=== PATIENT | female | born 1950 | race Caucasian/White ===

== ENCOUNTER 2016-08-31 09:30 | Day surgery (SDC) | payer MEDICARE, OTHER ==
--- NOTE | ~2016-08-31 | OP ---
Record Of Operation [facility] [address] [place]. [address] NAME: DIANN RAZO : [birth year] STATUS : [facility]#: [id number] AGE: 66 ADM/REG DATE : 08/31/16 MR#: [id number] REPORT SERV DATE: 09/02/16 DICTATED BY: KAYLEIGH DANIEL DATE: 09/02/16 REPORT STATUS : Draft TRANSCRIBED BY: MODL DATE: 09/02/16 DATE OF PROCEDURE: 08/31/2016 PREOPERATIVE DIAGNOSES: 1. History of right innominate stent with question of in-stent restenosis by recent ultrasound. 2. High-grade left common carotid artery stenosis. POSTOPERATIVE DIAGNOSES: 1. No significant restenosis of the innominate artery stent. 2. High-grade greater than 80% left common carotid artery origin stenosis. PROCEDURE: 1. Ultrasound-guided percutaneous access, right common femoral artery. 2. Arch aortogram. 3. Selective catheterization of the innominate artery and the left common carotid artery with selective arteriogram of each. SURGEON: Kayleigh Daniel M.D. ANESTHESIA: Local with MAC. ESTIMATED BLOOD LOSS: 25 mL. CONTRAST: 99 mL. IV FLUIDS: 1100 mL. COMPLICATIONS: None. INDICATION: Ms Razo is a pleasant, 66-year-old female smoker with a long history of peripheral arterial disease. She has a prior history of innominate artery stent placement in the past. Recent surveillance ultrasound showed abnormally low blood pressure in both arms. There is question of in-stent restenosis of the innominate stent. She also has a history of left carotid subclavian bypass with a normal-appearing bypass but waveform suggestive of proximal common carotid artery stenosis. She is recommended for diagnostic arteriogram. DETAILS OF PROCEDURE: After informed consent was obtained, the patient was brought to the endovascular suite and placed in supine position. After administration of IV sedation, she was prepped and draped in usual sterile fashion. A time-out was performed. I commenced the procedure with ultrasound-guided percutaneous access of the right common femoral artery. This was done after anesthetizing the right groin with local anesthetic. A permanent image of the artery documenting patency was saved and stored in the patient's chart. I accessed with a micropuncture needle, passed a micropuncture wire, confirmed intra-arterial under fluoroscopy. I then placed a micropuncture sheath. I then upsized to a 5-English sheath Record Of Operation [facility] [address] [place]. [address] NAME: DIANN RAZO OCTOBER : [birth year] STATUS : [facility]#: [id number] AGE: 66 ADM/REG DATE : 08/31/16 MR#: [id number] REPORT SERV DATE: 09/02/16 DICTATED BY: KAYLEIGH DANIEL DATE: 09/02/16 REPORT STATUS : Draft TRANSCRIBED BY: HITESH DATE: 09/02/16 over a Bentson wire. The Bentson wire and Ogden flush catheter were advanced to the aortic arch. 5000 units of IV heparin were administered. I then performed arch aortogram. This showed a patent nonaneurysmal aortic arch. There was a normal arch vessel configuration. It was a type 3 arch. There was a stent in place in the innominate, which was visible. There was flow through the stent. After that, I used a JB2 and the Glidewire to engage the innominate artery. Selective arteriogram of the innominate artery was performed, which showed a widely patent stent in the innominate. The common carotid artery was patent with no high-grade stenosis. There was stenosis at the origin the right subclavian artery, which probably explains the abnormally low blood pressure on the right side. After that, I engaged the left common carotid artery again with the JB2. Selective arteriogram of the common carotid artery was performed, which shows a high-grade focal stenosis at the origin of the common carotid artery greater than 80%. The remainder of the common carotid artery was widely patent including the bifurcation. There was a left carotid subclavian bypass, which was widely patent with no stenosis, good flow distally. After that, wires and catheters were removed. Right femoral artery arteriogram shows a puncture site in the mid common femoral artery. As a result, ProGlide closure device was deployed for hemostasis. This was uneventful. The patient tolerated the procedure well without complications. I was present and participated for this entire case as dictated. She will require stent placement in the origin of left common carotid artery as it is surgically inaccessible except via sternotomy. GEORG[place]/HITESH Kayleigh Daniel M.D. / [id number] CC: Kayleigh Daniel M.D.
[~2016-08-31 09:30] MED LIST: CLIMARA 0.1 MG0.1 MG PO; COREG12 PO; ESTRADIOL2 MG PO; HALF81 PO; L20 PO; LIPITOR10 PO; NORCO1 TA1 PO; NORCO1 TA2 PO; PLAVIX PO; VITAMIN D1000 UNI1 PO; ZANTAC150 MG PO; [UNRECOGNIZED DRUG - REMARK]
[2016-08-31 10:33] LABS: HEMOGLOBIN 8.7 g/dL (12.0-16.0)
[2016-08-31 10:44] LABS: CHLORIDE, SERUM 106 MMOL/L (96-112); CO2 (CARBON DIOXIDE) 24 MMOL/L (24-34); GFR AFRICAN AMERICAN 45 ML/MIN (>=60); GFR NON AFRICAN AMERICAN 39 ML/MIN (>=60); GLUCOSE, SERUM 92 MG/DL (60-99); SODIUM, SERUM 139 MMOL/L (135-148)
[2016-08-31 10:46] LABS: BUN (BLOOD UREA NITROGEN) 10 MG/DL (6-23); POTASSIUM, SERUM 5.2 MMOL/L (3.5-5.3)
[2016-11-08] MEDS ORDERED: PLAVIX PO (20:52)
[2016-11-08] MEDS ORDERED: COREG12 PO (20:52)
[2016-11-08] MEDS ORDERED: LIPITOR10 PO (20:53)
[2016-11-08] MEDS ORDERED: HALF81 PO (20:53)
[2016-11-08] MEDS ORDERED: ZANTAC150 MG PO (20:53)
[2016-11-08] MEDS ORDERED: ESTRADIOL2 MG PO (20:54)
[2016-11-08] MEDS ORDERED: L20 PO (20:54)
== END 2016-09-01 12:35 | disposition home or self-care (01) ==
LOC: SDC 09:30 → SSU1 17:29
PROVIDERS: Surgery
DX: I65.23 Occlusion and stenosis of bilateral carotid arteries (principal); T82.856A Stenosis of peripheral vascular stent, initial encounter; I10 Essential (primary) hypertension; E78.5 Hyperlipidemia, unspecified; J32.9 Chronic sinusitis, unspecified; I70.208 Unspecified atherosclerosis of native arteries of extremities, other extremity; I70.8 Atherosclerosis of other arteries; F17.200 Nicotine dependence, unspecified, uncomplicated; M19.90 Unspecified osteoarthritis, unspecified site; K21.9 Gastro-esophageal reflux disease without esophagitis; Z90.710 Acquired absence of both cervix and uterus; Z95.0 Presence of cardiac pacemaker; Z88.8 Allergy status to other drugs, medicaments and biological substances
CPT/HCPCS: 36222 ×2; 76937; 80048; 85014; 85018; 93005 ×2; A9270 ×9; C1760; C1769 ×3; C1887; C1894 ×2; J2270; J2370; J3010; J2250; Q9966

== ENCOUNTER 2016-09-09 08:21 | Inpatient (IN) | payer MEDICARE, OTHER ==
[2016-09-07 16:19] LABS: HEMATOCRIT 31.1 % (36.0-48.0)
[2016-09-07 16:27] LABS: BUN (BLOOD UREA NITROGEN) 12 MG/DL (6-23); CALCIUM, SERUM 9.5 MG/DL (8.5-10.4); CHLORIDE, SERUM 107 MMOL/L (96-112); CO2 (CARBON DIOXIDE) 23 MMOL/L (24-34); GFR AFRICAN AMERICAN 49 ML/MIN (>=60); GFR NON AFRICAN AMERICAN 42 ML/MIN (>=60); GLUCOSE, SERUM 87 MG/DL (60-99); POTASSIUM, SERUM 4.3 MMOL/L (3.5-5.3); SODIUM, SERUM 141 MMOL/L (135-148)
--- NOTE | ~2016-09-09 | OP ---
Record Of Operation [facility] [address] [place]. [address] NAME: DIANN RAZO : [birth year] STATUS : DIS IN PAT#: [id number] AGE: 66 ADM/REG DATE : 09/09/16 MR#: [id number] REPORT SERV DATE: 09/15/16 DICTATED BY: KAYLEIGH DANIEL DATE: 09/15/16 REPORT STATUS : Draft TRANSCRIBED BY: MODEmily DATE: 09/15/16 DATE OF PROCEDURE: 09/09/2016 PREOPERATIVE DIAGNOSES: High-grade 90% stenosis of the origin of the left common carotid artery. POSTOPERATIVE DIAGNOSIS: High-grade 90% stenosis of the origin of the left common carotid artery. PROCEDURES: 1. Ultrasound-guided percutaneous access, left brachial artery. 2. Left carotid arteriogram. 3. Primary stent placed in the left common carotid artery origin with distal embolic protection (7 mm x 19 mm Express SD stent). 4. Exploration of left brachial artery with primary repair. SURGEON: Kayleigh Daniel M.D. ANESTHESIA: Local with MAC. ESTIMATED BLOOD LOSS: 50 mL. CONTRAST: 45 mL. INDICATIONS: Ms. Razo is a pleasant 66-year-old female, long-time smoker, with a history of extracranial carotid artery disease. She has a prior history of innominate artery stent placement as well as left carotid subclavian bypass. On recent arteriogram, she was noted to have a high-grade 90% stenosis at the origin of the left common carotid artery. Due to her arch configuration, this was not able to be treated from a femoral approach. It is in the low intrathoracic position obviously and not amenable to surgical reconstruction. Thus she was recommended for a brachial access through her carotid subclavian bypass to stent her common carotid artery origin. DETAILS OF PROCEDURE: After informed consent was obtained, the patient was brought to the endovascular suite and placed in a supine position. After administration of IV sedation, she was prepped and draped in the usual sterile fashion. A time-out was performed. I commenced the procedure with ultrasound-guided percutaneous access to the left brachial artery. This was done after anesthetizing the skin. A permanent image of the artery documenting patency was saved and stored in the patient's chart. I accessed with a micropuncture needle, passed a micropuncture wire, confirmed intra-arterial under ultrasound. I then placed a micropuncture sheath. I performed contrast injection to ensure I was in the brachial artery. I then placed a Bentson wire followed by a 5-Syriac sheath. I used the Bentson wire and a julius 2 to navigate through the carotid subclavian bypass. Arteriogram was performed at this level which shows a widely patent carotid subclavian bypass with both anastomoses widely patent. I carefully advanced the catheter into the common carotid artery. The origin as mentioned previously is highly stenosed approximately Record Of Operation [facility] [address] [facility] [place]. [address] NAME: DIANN RAZO OCTOBER : [birth year] STATUS : DIS IN PAT#: [id number] AGE: 66 ADM/REG DATE : 09/09/16 MR#: [id number] REPORT SERV DATE: 09/15/16 DICTATED BY: KAYLEIGH DANIEL DATE: 09/15/16 REPORT STATUS : Draft TRANSCRIBED BY: HITESH DATE: 09/15/16 90%. There is no thrombus. There is moderate calcification. The remainder of the common carotid artery is widely patent with no stenosis as is the bifurcation. After that, I exchanged the 5-Syriac sheath for a 7 x 45 sheath. We systemically heparinized. I advanced the sheath up into the carotid subclavian bypass. I then used a julius 2 to direct a wire and catheter cephalad just proximal to the carotid bifurcation. I then deployed a 7 mm Spider filter into the distal common carotid artery. After that, I directed a V18 wire proximally down through the common carotid artery origin. Once the wire was in place, I primarily stented the common carotid artery origin with a 7 mm x 19 mm Express SD stent. Stent was deployed without difficulty with distal embolic protection in place the whole time. Repeat contrast injection shows the stent widely patent with perfect positioning. No residual stenosis. After that, I retrieved the filter. There was no embolic debris within the filter. There is a good flow distally in the carotid artery. Wires and catheters were removed. I attempted a ProGlide closure device of the brachial artery which was successful for hemostasis. However, there was not adequate flow distally by Doppler flow. As a result, I anesthetized the skin and antecubital fossa and exposed the brachial artery surgically. It was controlled proximally and distally with vessel loops. I exposed the closure site which was hemostatic. I cut the suture from the ProGlide and visualized the lumen of the vessel which is intact. I then primarily closed the arteriotomy with interrupted 6-0 Prolene. Prior to restoring flow, I flushed. I then restored the flow distally. The artery was pulsatile. There was a palpable pulse at the radial artery which is a significant improvement. The hand looks normally perfused. After that, we ensured hemostasis. The brachial incision was closed in layers with 3-0 Vicryl for the deep layer with running 4-0 Monocryl in a subcuticular fashion. The patient tolerated the procedure well with no complications. I was present for this entire case as dictated. She remained neurologically intact and cooperative throughout the procedure. GEORGIA/HITESH Kayleigh Daniel M.D. / [id number] CC: Kayleigh Daniel M.D.
[2016-09-10 04:20] LABS: BUN (BLOOD UREA NITROGEN) 15 MG/DL (6-23); CALCIUM, SERUM 8.7 MG/DL (8.5-10.4); CHLORIDE, SERUM 108 MMOL/L (96-112); CO2 (CARBON DIOXIDE) 25 MMOL/L (24-34); CREATININE 1.31 MG/DL (0.55-1.02); GFR AFRICAN AMERICAN 49 ML/MIN (>=60); GFR NON AFRICAN AMERICAN 42 ML/MIN (>=60); SODIUM, SERUM 142 MMOL/L (135-148)
[2016-09-10 04:22] LABS: GLUCOSE, SERUM 116 MG/DL (60-99)
[2016-09-10 05:25] LABS: BASOPHILS 0.5 %; BASOPHILS ABSOLUTE 0.04 10/3/uL (0.0-0.16); EOSINOPHILS 6.6 %; HEMOGLOBIN 7.3 g/dL (12.0-16.0); IMMATURE GRANULOCYTES 0.4 %; IMMATURE GRANULOCYTES ABSOLUTE 0.03 10/3/uL (0.0-0.11); LYMPHOCYTES 21.7 %; LYMPHOCYTES ABSOLUTE 1.63 10/3/uL (0.67-4.30); MEAN PLATELET VOLUME 9.2 fL (9.2-13.0); MONOCYTES 13.3 %; NEUTROPHILS 57.5 %; NEUTROPHILS ABSOLUTE 4.32 10/3/uL (2.02-8.40); PLATELET COUNT 334 10/3/uL (150-400); RBC DISTRIBUTION WIDTH 17.8 % (12.0-16.0); WHITE BLOOD CELLS 7.5 10/3/uL (4.5-10.5)
[2016-09-10 05:33] LABS: HEMATOCRIT 26.1 % (36.0-48.0); MANUAL DIFF NO %; MEAN CORPUSCULAR HEMOGLOB 21.1 pg (26.0-34.0); MEAN CORPUSCULAR VOLUME 75.4 fL (80-100); RED CELL COUNT 3.46 10/6/uL (4.0-5.6)
[2016-09-10] MEDS ORDERED: ASAB PO (16:45)
[2016-09-10] MEDS ORDERED: PCET PO (16:46)
[2016-11-08] MEDS ORDERED: COREG12 PO (20:52)
[2016-11-08] MEDS ORDERED: PLAVIX PO (20:52)
[2016-11-08] MEDS ORDERED: LIPITOR10 PO (20:53)
[2016-11-08] MEDS ORDERED: ZANTAC150 MG PO (20:53)
[2016-11-08] MEDS ORDERED: HALF81 PO (20:53)
[2016-11-08] MEDS ORDERED: ESTRADIOL2 MG PO (20:54)
[2016-11-08] MEDS ORDERED: L20 PO (20:54)
== END 2016-09-10 17:02 | disposition home or self-care (01) | DRG 35 ==
LOC: SDC 08:21 → SDC/OF 12:22 → CVICU 16:10
PROVIDERS: Surgery
PROC: 037J3DZ Dilation of Left Common Carotid Artery with Intraluminal Device, Percutaneous Approach (ICD-10-PCS; principal; 2016-09-09 10:15)
PROC: 03Q80ZZ Repair Left Brachial Artery, Open Approach (ICD-10-PCS; 2016-09-09 10:15)
DX: I65.22 Occlusion and stenosis of left carotid artery (principal); N17.9 Acute kidney failure, unspecified; E78.5 Hyperlipidemia, unspecified; I12.9 Hypertensive chronic kidney disease with stage 1 through stage 4 chronic kidney disease, or unspecified chronic kidney disease; Z88.8 Allergy status to other drugs, medicaments and biological substances; Z88.6 Allergy status to analgesic agent; Z79.899 Other long term (current) drug therapy; Z79.02 Long term (current) use of antithrombotics/antiplatelets; Z95.0 Presence of cardiac pacemaker; F17.210 Nicotine dependence, cigarettes, uncomplicated
CPT/HCPCS: 35206; 37215; 76937; 80048; 85014; 85018; 85025; A9270-GY; C1760; C1769; C1876; C1884; C1894; J0690; J1170; J2250; J2370; J3010; Q9966

== ENCOUNTER 2017-02-09 15:35 | Observation (INO) | payer MEDICARE, OTHER ==
[~2017-02-09] VITALS: Ht 157.5 cm; Wt 82.5 kg
--- NOTE | ~2017-02-09 | DS ---
Discharge Summary [facility] [address] [place]. [address] NAME: DIANN GARRETT OCTOBER : [birth year] STATUS : DIS Melanie PAT#: [id number] AGE: 66 ADM/REG DATE : 02/09/17 MR#: [id number] REPORT SERV DATE: 02/11/17 DICTATED BY: TRINA MARQUIS DATE: 02/10/17 REPORT STATUS : Draft TRANSCRIBED BY: MODL DATE: 02/10/17 ADMISSION DATE: 02/09/2017 DISCHARGE DATE: 02/10/2017 DISCHARGE DIAGNOSES: 1. Acute kidney injury on chronic kidney disease, improved with 2 L of normal saline. 2. Peripheral vascular disease. The patient has appointment with Dr. Daniel and he has been ordering ultrasound every three months. 3. Tobacco abuse. The patient is willing to take the nicotine patch to stop smoking. 4. Hypotension, recently her Coreg was double dosed by Dr. Wahl when she presented to his office with hypertension. We are going to resume her Coreg with the lower dose and recommend checking the ambulatory blood pressure at home. 5. Left hip pain and x-rays negative for acute abnormalities. HORTICULTURAL AGENT: Neurologist. HISTORY OF PRESENT ILLNESS: This is a 66-year-old female patient who has peripheral vascular disease, came to the hospital complaining of left-sided weakness and left-sided hip pain. Please see dictated H and P. HOSPITAL COURSE: The patient was admitted to hospital with concern for TIA/CVA. Had an MRI done, and did not show any acute stroke. The patient regained strength after the hydration, and she is able to ambulate the hallway without any problem. According to the history, more available from the son, the patient's Coreg was double dosed a week or two ago because her blood pressure was very high when she presented to Dr. Wahl's office. Weakness developed yesterday. When she came to the hospital, her blood pressure was low and also she was found to be dehydrated. She had 2 L of normal saline and she is better, and she regained her strength back. An MRI was negative for acute stroke, and the patient is followed by Dr. Daniel on a regular basis for peripheral vascular disease. Her left hip was examined with x-ray, was tender on the lateral side, more likely related to bursitis. We can continue the NSAID topical. She is willing to discontinue smoking and we will provide nicotine patch and explain. Education is given in a lengthy manner. Overall, had improvement. The patient will be discharged to home with followup with primary care physician and also Coreg will be resumed tomorrow with a lower dose. DISCHARGE MEDICATIONS: Again Coreg is decreased to 12.5 mg once a day and rest of her medications including aspirin 81 mg once a day, Lipitor 10 mg once at nighttime, Plavix 75 mg once a day, Zantac 150 mg twice a day, estradiol 2 mg once a day and is continued. Diclofenac topical is given from here for the left hip. Outpatient orthopedic evaluation is recommended. Discharge Summary [facility] [id number] [place]. [address] NAME: DIANN GARRETT OCTOBER : [birth year] STATUS : DIS Melanie PAT#: [id number] AGE: 66 ADM/REG DATE : 02/09/17 MR#: [id number] REPORT SERV DATE: 02/11/17 DICTATED BY: TRINA MARQUIS DATE: 02/10/17 REPORT STATUS : Draft TRANSCRIBED BY: HITESH DATE: 02/10/17 DISPOSITION: The patient is discharged to home and she did not want to have home physical therapy set up on discharge, so the patient will be discharged home without physical therapy service. EKL/HITESH Trina Marquis M.D. / [id number] CC: Trina Marquis M.D.
--- NOTE | ~2017-02-09 | HP ---
History And Physical [facility] [address] [place]. [address] NAME: DIANN GARRETT OCTOBER : [birth year] STATUS : ADM Melanie PAT#: [id number] AGE: 66 ADM/REG DATE : 02/09/17 MR#: [id number] REPORT SERV DATE: 02/09/17 DICTATED BY: IRMA SANTACRUZ DATE: 02/09/17 REPORT STATUS : Draft TRANSCRIBED BY: MODL DATE: 02/09/17 DATE OF ADMISSION: 02/09/2017 CHIEF COMPLAINT: Left leg weakness. HISTORY OF PRESENT ILLNESS: The patient is a 66-year-old white female who came in complaining of left leg weakness. Her son noted she could not stand. She fell out of her chair. She fell twice. She is also currently complaining of left hip pain. The patient has a history of bilateral carotid stents, last one was in 05/2016. She does continue to smoke 1-1/2 packs per day. Currently, the patient also has a history of vertebral basilar artery syndrome. She does have a pacemaker in, but per patient, it is MRI compatible. The patient has also had nausea and vomiting for the last several days also and has had difficulty keeping things down. PAST MEDICAL HISTORY: Significant for normal cardiac cath done in 10/2016, pacemaker, bilateral carotid stents, hypertension, increased cholesterol, hysterectomy, and cholecystectomy. She has vertebral basilar syndrome. ALLERGIES: SHE HAS NO KNOWN DRUG ALLERGIES. SOCIAL HISTORY: Smokes 1-1/2 packs per day. Does not drink alcohol. Retired motel worker. Lives with her son. She is a full code. FAMILY HISTORY: Dad of cirrhosis of liver. Mom of natural causes. MEDICATIONS: The patient was currently on vitamin C 500 mg daily, aspirin 81 mg daily, Lipitor 10 mg at bedtime, Coreg 12.5 mg b.i.d., Plavix 75 mg daily, estradiol 2 mg daily, and Zantac 150 mg b.i.d. ALLERGIES: SHE HAS NO KNOWN DRUG ALLERGIES. REVIEW OF SYSTEMS: CONSTITUTIONAL: She has had no fever, sweats, or rigors. EYES: No blurred or double vision, vision loss, or glaucoma. HEENT: No headache, hearing loss, or tinnitus. CARDIOVASCULAR: Denies chest pain, palpitations, or syncope. RESPIRATORY: No cough, wheezing, or pleuritic pain. GASTROINTESTINAL: She has had nausea and vomiting. No hematemesis. No abdominal pain. She has had some diarrhea. No melena or hematochezia. MUSCULOSKELETAL: She does have arthralgia, arthritis. Currently has left hip pain after her falls. INTEGUMENT: No rash or suspicious skin lesions. NEUROLOGIC: No memory loss. There have been some gait disturbance and weakness. There has been TIA like symptoms. HEMATOLOGIC: She does have a history of anemia. No iron deficiency or B12 deficiency. PSYCHIATRIC: No depression, bipolar anxiety. History And Physical [address] [address] NAME: DIANN GARRETT OCTOBER : [birth year] STATUS : ADM Melanie PAT#: [id number] AGE: 66 ADM/REG DATE : 02/09/17 MR#: [id number] REPORT SERV DATE: 02/09/17 DICTATED BY: IRMA SANTACRUZ DATE: 02/09/17 REPORT STATUS : Draft TRANSCRIBED BY: HITESH DATE: 02/09/17 : No dysuria, hematuria, or nephrolithiasis. ENDOCRINE: No history of diabetes. There is history of increased cholesterol. PHYSICAL EXAMINATION: VITAL SIGNS: Blood pressure is 98/53, temp 98.2, pulse 88, respiration 18, and O2 saturation 92% on room air. CONSTITUTIONAL: Alert, appropriate. PSYCHIATRIC: Oriented x3. Memory intact. Affect appropriate. HEENT: Atraumatic, normocephalic. Oral palate without lesion. EYES: Pupils reactive, anicteric. Conjunctivae clear. NECK: No adenopathy. Supple. No thyromegaly or masses. RESPIRATORY: Scattered rhonchi. No chest wall tenderness. CARDIOVASCULAR: Regular rate and rhythm. No murmurs. She does have bilateral carotid bruits. ABDOMEN: Soft, nontender. No masses. SKIN: No rash. No specific lesions. NEUROLOGICAL: She has some left leg weakness, otherwise, cranial nerves 2 through 12 intact. LYMPHATIC: No adenopathy in the neck, axilla, or femoral region. MUSCULOSKELETAL: Range of motion is intact in upper and lower extremities. DATA: Head CT note there are no acute changes. EKG is normal. LABORATORY WORK: White blood cell count 13.9, hemoglobin 8.5, and platelet 283. Sodium 131, potassium 3.2, BUN 15, creatinine 1.59, and glucose 115. IMPRESSION/PLAN: 1. Transient ischemic attack. Rule out cerebrovascular accident. We will order MRI in a.m. as the patient has an MRI compatible pacemaker. 2. Left hip pain. We will obtain left hip x-ray. 3. Nausea, vomiting, and diarrhea. We will give IV fluids as blood pressure is on the low side. 4. Hypokalemia, replete. 5. (?)-stage 3 chronic kidney disease. Recheck BMP in a.m. NGM/MODL Irma Santacruz MD / [id number] CC: Karmen Blue MD
[~2017-02-09 15:35] MED LIST changes: +ASAB PO; +PCET PO
[2017-02-09 17:31] LABS: BASOPHILS 0.1 %; BASOPHILS ABSOLUTE 0.01 10/3/uL (0.0-0.16); EOSINOPHILS 0.1 %; EOSINOPHILS ABSOLUTE 0.01 10/3/uL (0.0-0.53); HEMATOCRIT 29.2 % (36.0-48.0); HEMOGLOBIN 8.5 g/dL (12.0-16.0); IMMATURE GRANULOCYTES 0.4 %; IMMATURE GRANULOCYTES ABSOLUTE 0.05 10/3/uL (0.0-0.11); LYMPHOCYTES 8.3 %; LYMPHOCYTES ABSOLUTE 1.16 10/3/uL (0.67-4.30); MEAN CORPUS HGB CONC 29.1 g/dL (32.0-36.0); MEAN CORPUSCULAR HEMOGLOB 20.9 pg (26.0-34.0); MEAN CORPUSCULAR VOLUME 71.9 fL (80-100); MEAN PLATELET VOLUME 8.9 fL (9.2-13.0); MONOCYTES 8.6 %; MONOCYTES ABSOLUTE 1.19 10/3/uL (0.21-1.20); NEUTROPHILS 82.5 %; NEUTROPHILS ABSOLUTE 11.49 10/3/uL (2.02-8.40); PLATELET COUNT 283 10/3/uL (150-400); RBC DISTRIBUTION WIDTH 19.2 % (12.0-16.0); RED CELL COUNT 4.06 10/6/uL (4.0-5.6)
[2017-02-09 17:35] LABS: ER CBC TAT 0 Hrs 10 Mins; MANUAL DIFF NO %; WHITE BLOOD CELLS 13.9 10/3/uL (4.5-10.5)
[2017-02-09 17:45] LABS: A/G RATIO 0.6 (0.7-1.9); ALKALINE PHOSPHATASE 73 U/L (45-117); CALCIUM, SERUM 8.3 MG/DL (8.5-10.4); CO2 (CARBON DIOXIDE) 21 MMOL/L (24-34); CREATININE 1.59 MG/DL (0.55-1.02); GFR AFRICAN AMERICAN 39 ML/MIN (>=60); GFR NON AFRICAN AMERICAN 33 ML/MIN (>=60); GLOBULIN 4.1 G/DL (2.5-4.1); POTASSIUM, SERUM 3.2 MMOL/L (3.5-5.3); SGOT(AST) 16 U/L (5-40); SGPT(ALT) 10 U/L (5-65); TOTAL BILIRUBIN 0.5 MG/DL (0-1.2); TOTAL PROTEIN 6.7 G/DL (6.0-8.5); TROPONIN I <0.02 NG/ML (<0.05)
[2017-02-09 17:46] LABS: ALBUMIN 2.6 G/DL (3.5-5.0); BUN (BLOOD UREA NITROGEN) 15 MG/DL (6-23); CHLORIDE, SERUM 99 MMOL/L (96-112); GLUCOSE, SERUM 115 MG/DL (60-99); SODIUM, SERUM 131 MMOL/L (135-148)
[2017-02-09 17:49] LABS: ANISOCYTOSIS 1+ (5-10/OIF) (0-5/OIF); BAND NEUTROPHILS 2 %; ER DIFF TAT 0 Hrs 24 Mins; IMMATURE GRANS ABSOLUTE (CALC) 0.42 10/3/uL (0.0-0.11); LYMPHOCYTES 6 %; LYMPHOCYTES ABSOLUTE (CALC) 0.83 10/3/uL (0.67-4.30); METAMYELOCYTES 2 %; MONOCYTES 1 %; MONOCYTES ABSOLUTE (CALC) 0.14 10/3/uL (0.21-1.20); MYELOCYTES 1 %; NEUTROPHILS ABSOLUTE (CALC) 12.51 10/3/uL (2.02-8.40); SEGMENTED NEUTROPHIL (0) 88 %; TOTAL NUCLEATED CELLS 100
[2017-02-09 17:50] LABS: PLATELET ESTIMATE ADQ (ADEQUATE); RBC MORPHOLOGY ABN (NORMAL)
[2017-02-09 18:03] LABS: INTERNATIONAL NORMAL RATI 1.1 UNITS (-); PARTIAL THROMBO TIME 33.8 SEC (22.5-37.2); PROTIME (NOT ORD) 14.3 SEC (12.0-14.5)
[2017-02-09] MEDS ORDERED: AMOXIL500C PO (18:37)
[2017-02-09] MEDS ORDERED: VITC500 PO (18:38)
[2017-02-10 03:43] LABS: CHOL/HDL RATIO(NOT ORDER) 2.1 (0-5); CHOLESTEROL 66 MG/DL (< 200); CK-MB 1.6 NG/ML; CPK 170 U/L (0-200); FERRITIN 47 NG/ML (8-252); FOLATE 13.9 NG/ML (>5.2); HDL CHOLESTEROL 31 MG/DL (> 49); IRON BINDING CAPACITY 277 MCG/DL (225-410); IRON, SERUM 6 MCG/DL (35-150); LDL CHOLESTEROL 16 MG/DL (< 130); NON-HDL CHOLESTEROL 35 MG/DL (< 160); TRIGLYCERIDE 97 MG/DL (< 150); TROPONIN I <0.02 NG/ML (<0.05); ULTRASENSITIVE TSH 0.535 MCIU/ML (0.358-3.740)
[2017-02-10 06:18] LABS: BUN (BLOOD UREA NITROGEN) 15 MG/DL (6-23); CALCIUM, SERUM 8.2 MG/DL (8.5-10.4); CHLORIDE, SERUM 106 MMOL/L (96-112); CO2 (CARBON DIOXIDE) 21 MMOL/L (24-34); CREATININE 1.58 MG/DL (0.55-1.02); GFR AFRICAN AMERICAN 39 ML/MIN (>=60); GFR NON AFRICAN AMERICAN 34 ML/MIN (>=60); GLUCOSE, SERUM 101 MG/DL (60-99); SODIUM, SERUM 137 MMOL/L (135-148)
[2017-02-10 06:19] LABS: POTASSIUM, SERUM 4.2 MMOL/L (3.5-5.3)
[2017-02-10 06:42] LABS: ASCORBIC ACID (UR NOT ORDER) NEG (NEG); BILIRUBIN, URINE NEGATIVE (NEG); KETONE, URINE NEGATIVE (NEG); LEUKOCYTE ESTERASE(NOT OR TRACE (NEG); WBC (NOT ORDERED) (RFLEX) 9 (0-5)
[2017-02-10 09:54] LABS: CK-MB 2.1 NG/ML; CPK 220 U/L (0-200); TROPONIN I <0.02 NG/ML (<0.05)
[2017-02-10] MEDS ORDERED: HABIT21 (15:07)
[2017-02-10] MEDS ORDERED: VOLTAREN1 % TOP (15:08)
[2017-02-10] MEDS ORDERED: VOLTAREN1 % (15:08)
== END 2017-02-10 15:18 | disposition home or self-care (01) ==
LOC: ER 15:35 → CDU1 20:20
PROVIDERS: Emergency Medicine; Hospitalist
DX: N17.9 Acute kidney failure, unspecified (principal); G45.9 Transient cerebral ischemic attack, unspecified; I12.9 Hypertensive chronic kidney disease with stage 1 through stage 4 chronic kidney disease, or unspecified chronic kidney disease; N18.9 Chronic kidney disease, unspecified; M25.552 Pain in left hip; R11.2 Nausea with vomiting, unspecified; R19.7 Diarrhea, unspecified; E87.6 Hypokalemia; I73.9 Peripheral vascular disease, unspecified; I95.9 Hypotension, unspecified; E78.00 Pure hypercholesterolemia, unspecified; F17.210 Nicotine dependence, cigarettes, uncomplicated; Z90.49 Acquired absence of other specified parts of digestive tract; Z90.710 Acquired absence of both cervix and uterus; Z79.02 Long term (current) use of antithrombotics/antiplatelets; Z79.82 Long term (current) use of aspirin; Z79.899 Other long term (current) drug therapy; Z88.8 Allergy status to other drugs, medicaments and biological substances
CPT/HCPCS: 36415; 70450; 70496; 70498; 70544; 70547; 70551-52; 71010; 73501-LT; 80048; 80053; 80061; 81001; 82550; 82553; 82607; 82728; 82746; 82962; 83036; 83540; 83550; 84443; 84484; 85025; 85610; 85730; 86850; 86900; 86901; 93005; 93306; 96372; 96374; 96376; A9270-GY; G0378